=== PATIENT | male | born 2000 | race Caucasian/White ===

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

== ENCOUNTER 2019-10-17 12:03 | Emergency (ER) | payer OTHER ==
[~2019-10-17] VITALS: Ht 172.7 cm; Wt 73.0 kg
[2019-10-17 12:07] VITALS: BP 137/62
--- NOTE | 2019-10-17 12:22 | NUR ---
C/O HEADACHE STARTING THIS MORNING, DENIES BLURRY VISION/N/V. PT REPORTS DRINKING 12 PACK OF BEER YESTERDAY. HAS NOT TAKEN ANY OTC MEDS AT HOME FOR RELIEF.PT AWAKE , ALERT ,AMBULATORY WITH STEADY GAIT HX: NONE RX: NONE
[2019-10-17 13:35] VITALS: BP 124/62
== END 2019-10-17 13:35 | disposition home or self-care (01) ==
LOC: MED 12:03
DX: R51 Headache (principal)
CPT/HCPCS: 99281